=== PATIENT | female | born 1980 | race Caucasian/White ===

== ENCOUNTER 2017-10-23 19:09 | Emergency (ER) | payer OTHER ==
[~2017-10-23] VITALS: Ht 162.6 cm; Wt 59.0 kg
[~2017-10-23 19:09] MED LIST: BENZ100A PO; CHLO25 PO; CYCL10 PO; HYDHCL25 PO; LATUDA40 MG PO; Mobic15 MG PO; Mupirocin22 GM TP; Omeprazole20 M1; RISP1 PO; Zithromax250 MG PO; Zofran Odt8 MG SL
[2017-10-23] MEDS ORDERED: Vistaril25 MG PO (19:39)
[2018-04-09] MEDS ORDERED: GABA800 PO (16:02)
[2018-04-09] MEDS ORDERED: HYDPAM50 PO (16:02)
[2018-04-09] MEDS ORDERED: OMEPRAZOLE MAGN20 MG PO (16:03)
[2018-04-11] MEDS ORDERED: CHLO10 PO (08:37)
[2018-04-11] MEDS ORDERED: METO25 PO (08:38)
[2018-04-11] MEDS ORDERED: NICO21TP TD (08:39)
[2018-04-11] MEDS ORDERED: ONDA4ODT MM (08:42)
[2018-07-04] MEDS ORDERED: Naltrexone HCl50 MG PO (23:00)
[2018-07-04] MEDS ORDERED: HYDPAM50 PO (23:01)
[2018-07-04] MEDS ORDERED: OMEPRAZOLE MAGN20 MG PO (23:01)
[2018-08-19] MEDS ORDERED: K-Dur20 MEQ PO (10:31)
[2018-08-19] MEDS ORDERED: Hydroxyzine HCl50 MG PO (10:33)
== END 2017-10-23 20:01 | disposition home or self-care (01) ==
LOC: ER 19:09
DX: L23.7 Allergic contact dermatitis due to plants, except food (principal); Z88.0 Allergy status to penicillin; Z88.2 Allergy status to sulfonamides; Z88.5 Allergy status to narcotic agent; F17.210 Nicotine dependence, cigarettes, uncomplicated
CPT/HCPCS: 96372; 99283; J2920; J3301

== ENCOUNTER 2017-10-26 03:00 | Emergency (ER) | payer OTHER ==
[~2017-10-26] VITALS: Ht 162.6 cm; Wt 59.0 kg
[~2017-10-26 03:00] MED LIST changes: +Vistaril25 MG PO
[2017-10-26] MEDS ORDERED: PRED20 PO (06:15)
[2017-10-26] MEDS ORDERED: HYDHCL25 PO (06:15)
[2018-04-09] MEDS ORDERED: HYDPAM50 PO (16:02)
[2018-04-09] MEDS ORDERED: GABA800 PO (16:02)
[2018-04-09] MEDS ORDERED: OMEPRAZOLE MAGN20 MG PO (16:03)
[2018-04-11] MEDS ORDERED: CHLO10 PO (08:37)
[2018-04-11] MEDS ORDERED: METO25 PO (08:38)
[2018-04-11] MEDS ORDERED: NICO21TP TD (08:39)
[2018-04-11] MEDS ORDERED: ONDA4ODT MM (08:42)
[2018-07-04] MEDS ORDERED: Naltrexone HCl50 MG PO (23:00)
[2018-07-04] MEDS ORDERED: HYDPAM50 PO (23:01)
[2018-07-04] MEDS ORDERED: OMEPRAZOLE MAGN20 MG PO (23:01)
[2018-08-19] MEDS ORDERED: K-Dur20 MEQ PO (10:31)
[2018-08-19] MEDS ORDERED: Hydroxyzine HCl50 MG PO (10:33)
== END 2017-10-26 06:37 | disposition home or self-care (01) ==
LOC: ER 03:00
DX: L23.7 Allergic contact dermatitis due to plants, except food (principal); F17.210 Nicotine dependence, cigarettes, uncomplicated; Z90.49 Acquired absence of other specified parts of digestive tract
CPT/HCPCS: 99283

== ENCOUNTER 2017-11-17 12:01 | Emergency (ER) | payer OTHER ==
[~2017-11-17] VITALS: Ht 162.6 cm; Wt 63.5 kg
[~2017-11-17 12:01] MED LIST changes: +PRED20 PO
[2017-11-17 13:50] LABS: BASOPHILS ABSOLUTE AUTO 0.03 K/mm3 (0.00-0.23); BASOPHILS PERCENT AUTO 0 % (0-2); EOSINOPHILS ABSOLUTE AUTO 0.14 K/mm3 (0.00-0.68); EOSINOPHILS PERCENT AUTO 1 % (0-6); Hematocrit 36.7 % (33.0-51.0); Hemoglobin 12.6 g/dL (11.5-16.0); IMMATURE GRAN ABSOLUTE AUTO 0.02 K/mm3 (0.00-0.10); IMMATURE GRAN PERCENT AUTO 0 % (0-1); LYMPHOCYTES ABSOLUTE AUTO 1.81 K/mm3 (0.84-5.20); LYMPHOCYTES PERCENT AUTO 17 % (21-46); MONOCYTES PERCENT AUTO 11 % (4-13); Mean Corpuscular HGB 31.8 pg (26.0-34.0); Mean Corpuscular HGB Conc 34.3 g/dL (31.5-36.5); Mean Corpuscular Volume 93 fL (80-100); Mean Platelet Volume 8.7 fL (9.1-12.4); NEUTROPHILS ABSOLUTE AUTO 7.41 K/mm3 (1.96-9.15); NEUTROPHILS PERCENT AUTO 71 % (41-73); Platelet Count 287 K/mm3 (150-400); RDW Coefficient Variation 14.4 % (11.7-14.2); RDW Standard Deviation 48.6 fL (35.1-46.3); Red Blood Cell Count 3.96 M/mm3 (3.80-5.20); White Blood Cell Count 10.51 K/mm3 (4.00-11.30)
[2017-11-17 13:51] LABS: Source, Urine Clean Catch
[2017-11-17 14:00] LABS: Alanine Aminotransfer (ALT/SGP 107 U/L (12-78); Albumin, Blood 3.4 g/dL (3.4-5.0); Albumin/Globulin Ratio 0.9 (0.8-1.8); Alk Phos 78 U/L (50-136); Anion Gap 14 mmol/L (6-16); Aspartate Aminotrans (AST/SGOT 147 U/L (12-37); Bilirubin, Total 0.6 mg/dL (0.1-1.0); Blood Urea Nitrogen 16 mg/dL (8-24); CO2, Blood 20 mmol/L (21-32); Calcium, Blood 8.5 mg/dL (8.5-10.1); Chloride, Blood 109 mmol/L (98-108); Creatinine, Blood 0.67 mg/dL (0.40-1.00); Ethanol (Alcohol), Blood, Med 140 mg/dL; Globulin, Blood 3.6 g/dL (2.2-4.0); Glomerular Filtration Rate >60 (60-); Glucose, Blood 94 mg/dL (70-99); Potassium, Blood 3.2 mmol/L (3.5-5.5); Sodium, Blood 143 mmol/L (136-145)
[2017-11-17 14:12] LABS: Appearance, Urine Clear (Clear); Bilirubin, Urine Neg (Neg); Blood, Urine 4+ (Neg); Color, Urine Yellow (P-Yellow); Glucose Qualitative, Urine Neg (Neg); Ketones, Urine 3+ (Neg); Leukocyte Esterase, Urine Neg (Neg); Nitrite, Urine Neg (Neg); Protein, Urine 2+ (Neg); Specific Gravity, Urine 1.025 (1.003-1.022); Urobilinogen, Urine 1+ (Normal)
[2017-11-17 14:22] LABS: Bacteria Mod /hpf; Squamous Epithelial Cells Mod /hpf (Few); White Blood Cells, Urine 0-2 /hpf (0-5)
[2017-11-17 14:23] LABS: Amorphous Light (0-Heavy)
[2017-11-17 14:24] LABS: U Amphetamine Screen DETECTED; U Barbituate Screen Not Detected; U Benzodiazapine Screen Not Detected; U Buprenorphine Screen Not Detected; U Cannabinoids Screen DETECTED; U Cocaine Screen Not Detected; U Methadone Screen Not Detected; U Methamphetamine Screen DETECTED; U Opiates Screen Not Detected; U Oxycodone Screen Not Detected; U Phencyclidine Screen Not Detected; U Propoxyphene Screen Not Detected; Yeast/Fungi Urine Few /hpf
[2018-04-09] MEDS ORDERED: HYDPAM50 PO (16:02)
[2018-04-09] MEDS ORDERED: GABA800 PO (16:02)
[2018-04-09] MEDS ORDERED: OMEPRAZOLE MAGN20 MG PO (16:03)
[2018-04-11] MEDS ORDERED: CHLO10 PO (08:37)
[2018-04-11] MEDS ORDERED: METO25 PO (08:38)
[2018-04-11] MEDS ORDERED: NICO21TP TD (08:39)
[2018-04-11] MEDS ORDERED: ONDA4ODT MM (08:42)
[2018-07-04] MEDS ORDERED: Naltrexone HCl50 MG PO (23:00)
[2018-07-04] MEDS ORDERED: OMEPRAZOLE MAGN20 MG PO (23:01)
[2018-07-04] MEDS ORDERED: HYDPAM50 PO (23:01)
[2018-08-19] MEDS ORDERED: K-Dur20 MEQ PO (10:31)
[2018-08-19] MEDS ORDERED: Hydroxyzine HCl50 MG PO (10:33)
== END 2017-11-17 14:41 | disposition home or self-care (01) ==
LOC: ER 12:01
PROVIDERS: Emergency Medicine; Internal Medicine
DX: K29.20 Alcoholic gastritis without bleeding (principal); F10.10 Alcohol abuse, uncomplicated; F15.10 Other stimulant abuse, uncomplicated; Y90.6 Blood alcohol level of 120-199 mg/100 ml; F17.210 Nicotine dependence, cigarettes, uncomplicated; Z88.0 Allergy status to penicillin; Z88.2 Allergy status to sulfonamides; Z88.5 Allergy status to narcotic agent
CPT/HCPCS: 71046; 80053; 81001; 85025; 93005; 93010; 99283; G0480

== ENCOUNTER 2018-08-26 07:47 | Day surgery (SDC) | payer OTHER ==
[~2018-08-26] VITALS: Ht 165.1 cm; Wt 81.8 kg
[~2018-08-26 07:47] MED LIST changes: +CHLO10 PO; +GABA800 PO; +HYDPAM50 PO; +Hydroxyzine HCl50 MG PO; +K-Dur20 MEQ PO; +METO25 PO; +NICO21TP TD; +Naltrexone HCl50 MG PO; +OMEPRAZOLE MAGN20 MG PO; +ONDA4ODT MM
== END 2018-08-26 10:00 | disposition home or self-care (01) ==
LOC: ORSCSDS 07:47
DX: K25.9 Gastric ulcer, unspecified as acute or chronic, without hemorrhage or perforation (principal); Z53.9 Procedure and treatment not carried out, unspecified reason
CPT/HCPCS: J2001; J7120

== ENCOUNTER 2018-08-30 13:42 | Emergency (ER) | payer OTHER ==
[~2018-08-30] VITALS: Ht 165.1 cm; Wt 77.1 kg
[2018-08-30] MEDS ORDERED: IBUP600 PO (15:16)
[2018-08-30] MEDS ORDERED: CEPH500 PO (15:16)
== END 2018-08-30 15:24 | disposition home or self-care (01) ==
LOC: ER 13:42
DX: S61.313A Laceration without foreign body of left middle finger with damage to nail, initial encounter (principal); F17.210 Nicotine dependence, cigarettes, uncomplicated; Z91.013 Allergy to seafood; Z88.0 Allergy status to penicillin; Z88.2 Allergy status to sulfonamides; Z88.5 Allergy status to narcotic agent; Z79.899 Other long term (current) drug therapy; W26.8XXA Contact with other sharp object(s), not elsewhere classified, initial encounter
CPT/HCPCS: 11730; 73140; 99283-25

== ENCOUNTER 2018-09-18 10:25 | Emergency (ER) | payer OTHER ==
[~2018-09-18] VITALS: Ht 162.6 cm; Wt 81.7 kg
[~2018-09-18 10:25] MED LIST changes: +CEPH500 PO; +IBUP600 PO
== END 2018-09-18 10:53 | disposition home or self-care (01) ==
LOC: ER 10:25
DX: S61.213D Laceration without foreign body of left middle finger without damage to nail, subsequent encounter (principal); Z88.0 Allergy status to penicillin; Z88.2 Allergy status to sulfonamides; Z88.5 Allergy status to narcotic agent; Z79.899 Other long term (current) drug therapy; F17.210 Nicotine dependence, cigarettes, uncomplicated

== ENCOUNTER 2018-10-23 13:35 | Emergency (ER) | payer OTHER ==
[~2018-10-23] VITALS: Ht 162.6 cm; Wt 82.1 kg
[2018-10-23] MEDS ORDERED: CHLO25 PO (13:57)
[2018-10-23] MEDS ORDERED: OMEPRAZOLE MAGN20 MG (13:57)
[2018-10-23] MEDS ORDERED: OMEPRAZOLE MAGN20 MG PO (13:57)
[2018-10-23] MEDS ORDERED: METO25ER PO (13:58)
[2018-10-23] MEDS ORDERED: ALBU90OI INH (13:58)
[2018-10-23 14:59] LABS: Source, Urine Clean Catch
[2018-10-23 15:13] LABS: Appearance, Urine Clear (Clear); Bilirubin, Urine Neg (Neg); Blood, Urine Neg (Neg); Color, Urine Yellow (P-Yellow); Glucose Qualitative, Urine Neg (Neg); Ketones, Urine Neg (Neg); Leukocyte Esterase, Urine Neg (Neg); Nitrite, Urine Neg (Neg); Protein, Urine Neg (Neg); Specific Gravity, Urine 1.005 (1.003-1.022); Urobilinogen, Urine NORM (Normal)
[2018-10-23 15:57] LABS: BASOPHILS ABSOLUTE AUTO 0.03 K/mm3 (0.00-0.23); BASOPHILS PERCENT AUTO 0 % (0-2); EOSINOPHILS ABSOLUTE AUTO 0.21 K/mm3 (0.00-0.68); EOSINOPHILS PERCENT AUTO 2 % (0-6); Hematocrit 40.8 % (33.0-51.0); Hemoglobin 13.6 g/dL (11.5-16.0); IMMATURE GRAN ABSOLUTE AUTO 0.03 K/mm3 (0.00-0.10); IMMATURE GRAN PERCENT AUTO 0 % (0-1); LYMPHOCYTES ABSOLUTE AUTO 2.79 K/mm3 (0.84-5.20); LYMPHOCYTES PERCENT AUTO 30 % (21-46); MONOCYTES ABSOLUTE AUTO 1.02 K/mm3 (0.16-1.47); MONOCYTES PERCENT AUTO 11 % (4-13); Mean Corpuscular HGB 29.6 pg (26.0-34.0); Mean Corpuscular HGB Conc 33.3 g/dL (31.5-36.5); Mean Corpuscular Volume 89 fL (80-100); Mean Platelet Volume 9.1 fL (9.1-12.4); NEUTROPHILS ABSOLUTE AUTO 5.33 K/mm3 (1.96-9.15); NEUTROPHILS PERCENT AUTO 57 % (41-73); Platelet Count 322 K/mm3 (150-400); RDW Coefficient Variation 14.6 % (11.7-14.2); RDW Standard Deviation 46.5 fL (35.1-46.3); White Blood Cell Count 9.41 K/mm3 (4.00-11.30)
[2018-10-23 16:16] LABS: Troponin I <0.015 ng/mL (0.000-0.040)
[2018-10-23 16:17] LABS: Alanine Aminotransfer (ALT/SGP 57 U/L (12-78); Albumin, Blood 3.3 g/dL (3.4-5.0); Albumin/Globulin Ratio 0.8 (0.8-1.8); Alk Phos 78 U/L (50-136); Anion Gap 8 mmol/L (6-16); Aspartate Aminotrans (AST/SGOT 59 U/L (12-37); Bilirubin, Total 0.4 mg/dL (0.1-1.0); Blood Urea Nitrogen 16 mg/dL (8-24); Bun/Creatinine Ratio 20.1 (12.0-20.0); CO2, Blood 24 mmol/L (21-32); Calcium, Blood 9.1 mg/dL (8.5-10.1); Chloride, Blood 104 mmol/L (98-108); Globulin, Blood 4.1 g/dL (2.2-4.0); Glomerular Filtration Rate >60 (60-); Glucose, Blood 95 mg/dL (70-99); Potassium, Blood 4.8 mmol/L (3.5-5.5); Sodium, Blood 136 mmol/L (136-145); Total Protein, Blood 7.4 g/dL (6.4-8.2)
== END 2018-10-23 16:53 | disposition home or self-care (01) ==
LOC: ER 13:35
PROVIDERS: Emergency Medicine
DX: R07.9 Chest pain, unspecified (principal); F17.210 Nicotine dependence, cigarettes, uncomplicated; Z88.0 Allergy status to penicillin; Z88.2 Allergy status to sulfonamides; Z91.013 Allergy to seafood; Z88.5 Allergy status to narcotic agent; Z79.899 Other long term (current) drug therapy
CPT/HCPCS: 36415; 71046; 80053; 81003; 81025; 83690; 84484; 85025; 85379; 93005; 93010; 99285-25

== ENCOUNTER 2018-11-06 21:34 | Emergency (ER) | payer OTHER ==
[~2018-11-06] VITALS: Ht 162.6 cm; Wt 86.2 kg
[~2018-11-06 21:34] MED LIST changes: +ALBU90OI INH; +METO25ER PO; +OMEPRAZOLE MAGN20 MG
[2018-11-06] MEDS ORDERED: Vistaril50 MG PO (22:30)
== END 2018-11-06 22:45 | disposition home or self-care (01) ==
LOC: ER 21:34
DX: R20.8 Other disturbances of skin sensation (principal); F10.20 Alcohol dependence, uncomplicated; F17.210 Nicotine dependence, cigarettes, uncomplicated; Z91.013 Allergy to seafood; Z88.0 Allergy status to penicillin; Z88.2 Allergy status to sulfonamides; Z88.5 Allergy status to narcotic agent; Z79.899 Other long term (current) drug therapy
CPT/HCPCS: 99284

== ENCOUNTER 2018-12-24 00:28 | Day surgery (SDC) | payer OTHER ==
[~2018-12-24 00:28] MED LIST changes: +Vistaril50 MG PO
[2018-12-24] MEDS ORDERED: GABA800 (14:48)
[2018-12-24] MEDS ORDERED: PRAZ2 (14:48)
[2018-12-24] MEDS ORDERED: Prozac20 MG (14:48)
[2018-12-24] MEDS ORDERED: PROP10 (14:49)
== END 2018-12-24 11:05 | disposition home or self-care (01) ==
LOC: ATC 00:28
DX: K62.3 Rectal prolapse (principal); F41.9 Anxiety disorder, unspecified; F17.210 Nicotine dependence, cigarettes, uncomplicated; Z79.899 Other long term (current) drug therapy; Z88.1 Allergy status to other antibiotic agents; Z88.0 Allergy status to penicillin; Z91.013 Allergy to seafood; Z88.5 Allergy status to narcotic agent; Z88.2 Allergy status to sulfonamides
CPT/HCPCS: 99211; C1751

== ENCOUNTER 2019-06-08 10:44 | Emergency (ER) | payer OTHER ==
[~2019-06-08] VITALS: Ht 162.6 cm; Wt 77.1 kg
[~2019-06-08 10:44] MED LIST changes: +GABA800; +PRAZ2; +PROP10; +Prozac20 MG
[2019-06-08] MEDS ORDERED: Monodox100 MG PO (11:14)
== END 2019-06-08 11:24 | disposition home or self-care (01) ==
LOC: ER 10:44
DX: N61.1 Abscess of the breast and nipple (principal); F17.210 Nicotine dependence, cigarettes, uncomplicated; Z91.018 Allergy to other foods; Z88.0 Allergy status to penicillin; Z88.5 Allergy status to narcotic agent; Z79.899 Other long term (current) drug therapy
CPT/HCPCS: 99283

== ENCOUNTER 2020-02-03 01:06 | Emergency (ER) | payer OTHER ==
[~2020-02-03] VITALS: Ht 162.6 cm; Wt 72.6 kg
[~2020-02-03 01:06] MED LIST changes: +Monodox100 MG PO
[2020-02-03 01:44] LABS: BASOPHILS ABSOLUTE AUTO 0.04 K/mm3 (0.00-0.23); BASOPHILS PERCENT AUTO 0 % (0-2); EOSINOPHILS ABSOLUTE AUTO 0.06 K/mm3 (0.00-0.68); EOSINOPHILS PERCENT AUTO 1 % (0-6); Hematocrit 42.7 % (33.0-51.0); Hemoglobin 13.7 g/dL (11.5-16.0); IMMATURE GRAN ABSOLUTE AUTO 0.03 K/mm3 (0.00-0.10); IMMATURE GRAN PERCENT AUTO 0 % (0-1); LYMPHOCYTES ABSOLUTE AUTO 1.04 K/mm3 (0.84-5.20); LYMPHOCYTES PERCENT AUTO 11 % (21-46); MONOCYTES ABSOLUTE AUTO 0.51 K/mm3 (0.16-1.47); MONOCYTES PERCENT AUTO 6 % (4-13); Mean Corpuscular HGB 28.7 pg (26.0-34.0); Mean Corpuscular HGB Conc 32.1 g/dL (31.5-36.5); Mean Corpuscular Volume 89 fL (80-100); Mean Platelet Volume 8.9 fL (9.1-12.4); NEUTROPHILS PERCENT AUTO 82 % (41-73); Platelet Count 330 K/mm3 (150-400); RDW Coefficient Variation 13.8 % (11.7-14.2); RDW Standard Deviation 45.1 fL (35.1-46.3); Red Blood Cell Count 4.78 M/mm3 (3.80-5.20); White Blood Cell Count 9.28 K/mm3 (4.00-11.30)
[2020-02-03 01:59] LABS: Alanine Aminotransfer (ALT/SGP 48 U/L (12-78); Albumin, Blood 3.5 g/dL (3.4-5.0); Albumin/Globulin Ratio 0.8 (0.8-1.8); Alk Phos 107 U/L (50-136); Anion Gap 9 mmol/L (6-16); Aspartate Aminotrans (AST/SGOT 45 U/L (12-37); Bilirubin, Total 0.1 mg/dL (0.1-1.0); Blood Urea Nitrogen 11 mg/dL (8-24); Bun/Creatinine Ratio 14.6 (12.0-20.0); CO2, Blood 25 mmol/L (21-32); Calcium, Blood 8.3 mg/dL (8.5-10.1); Chloride, Blood 106 mmol/L (98-108); Creatinine, Blood 0.75 mg/dL (0.40-1.00); Ethanol (Alcohol), Blood, Med 76 mg/dL; Globulin, Blood 4.3 g/dL (2.2-4.0); Glomerular Filtration Rate >60 (60-); Glucose, Blood 99 mg/dL (70-99); Potassium, Blood 3.4 mmol/L (3.5-5.5); Sodium, Blood 140 mmol/L (136-145); Total Protein, Blood 7.8 g/dL (6.4-8.2)
[2020-02-03 03:46] LABS: Source, Urine Clean Catch
[2020-02-03 03:47] LABS: Bilirubin, Urine Neg (Neg); Blood, Urine 3+ (Neg); Glucose Qualitative, Urine Neg (Neg); Ketones, Urine Neg (Neg); Leukocyte Esterase, Urine Neg (Neg); Nitrite, Urine Neg (Neg); Protein, Urine 3+ (Neg); Specific Gravity, Urine 1.025 (1.003-1.022); Urobilinogen, Urine NORM (Normal)
[2020-02-03 03:52] LABS: Appearance, Urine Clear (Clear); Color, Urine Yellow (P-Yellow)
[2020-02-03 03:54] LABS: Amorphous Light (0-Heavy); Bacteria Mod /hpf; Red Blood Cells, Urine 0-2 /hpf (0-2); Squamous Epithelial Cells Few /hpf (Few)
[2020-02-03 03:55] LABS: Hyaline Casts 0-2 /lpf (0-2); Mucus Light (0-Heavy)
== END 2020-02-03 04:40 | disposition home or self-care (01) ==
LOC: ER 01:06
PROVIDERS: Emergency Medicine
DX: T40.1X1A Poisoning by heroin, accidental (unintentional), initial encounter (principal); Z88.0 Allergy status to penicillin; Z88.2 Allergy status to sulfonamides; Z88.5 Allergy status to narcotic agent; Z91.013 Allergy to seafood; F17.210 Nicotine dependence, cigarettes, uncomplicated
CPT/HCPCS: 36415; 80053; 81001; 83690; 85025; 87086; 96361; 96374; 99284-25; G0480; J2405; J7030; P9612

== ENCOUNTER 2020-06-16 16:45 | Emergency (ER) | payer OTHER ==
[~2020-06-16] VITALS: Ht 162.6 cm; Wt 72.6 kg
[2020-06-16 17:17] LABS: BASOPHILS ABSOLUTE AUTO 0.04 K/mm3 (0.00-0.23); BASOPHILS PERCENT AUTO 0 % (0-2); EOSINOPHILS ABSOLUTE AUTO 0.16 K/mm3 (0.00-0.68); EOSINOPHILS PERCENT AUTO 2 % (0-6); Hematocrit 46.7 % (33.0-51.0); Hemoglobin 15.3 g/dL (11.5-16.0); IMMATURE GRAN ABSOLUTE AUTO 0.02 K/mm3 (0.00-0.10); IMMATURE GRAN PERCENT AUTO 0 % (0-1); LYMPHOCYTES PERCENT AUTO 36 % (21-46); MONOCYTES PERCENT AUTO 6 % (4-13); Mean Corpuscular HGB Conc 32.8 g/dL (31.5-36.5); Mean Corpuscular Volume 88 fL (80-100); Mean Platelet Volume 8.9 fL (9.1-12.4); NEUTROPHILS ABSOLUTE AUTO 6.08 K/mm3 (1.96-9.15); NEUTROPHILS PERCENT AUTO 55 % (41-73); NRBC ABSOLUTE 0.04 K/mm3 (0.00-0.02); NRBC Auto 0.4 /100 WBC (0.0-0.2); Platelet Count 448 K/mm3 (150-400); RDW Coefficient Variation 13.8 % (11.7-14.2); Red Blood Cell Count 5.28 M/mm3 (3.80-5.20)
[2020-06-16 18:07] LABS: Anion Gap 9 mmol/L (6-16); CO2, Blood 24 mmol/L (21-32); Chloride, Blood 109 mmol/L (98-108); Sodium, Blood 142 mmol/L (136-145)
[2020-06-16 18:30] LABS: Alanine Aminotransfer (ALT/SGP 43 U/L (12-78); Albumin, Blood 3.6 g/dL (3.4-5.0); Albumin/Globulin Ratio 0.8 (0.8-1.8); Alk Phos 92 U/L (50-136); Aspartate Aminotrans (AST/SGOT 50 U/L (12-37); Bilirubin, Total 0.2 mg/dL (0.1-1.0); Blood Urea Nitrogen 8 mg/dL (8-24); Calcium, Blood 9.2 mg/dL (8.5-10.1); Globulin, Blood 4.7 g/dL (2.2-4.0); Glucose, Blood 108 mg/dL (70-99); Total Protein, Blood 8.3 g/dL (6.4-8.2)
[2020-06-16 18:31] LABS: Bun/Creatinine Ratio 12.7 (12.0-20.0); Creatinine, Blood 0.63 mg/dL (0.40-1.00); Glomerular Filtration Rate >60 (60-)
[2020-06-16] MEDS ORDERED: Vibramycin100 MG PO (19:02)
== END 2020-06-16 19:20 | disposition home or self-care (01) ==
LOC: ER 16:45
PROVIDERS: Physician Assistant
DX: L02.211 Cutaneous abscess of abdominal wall (principal); F17.210 Nicotine dependence, cigarettes, uncomplicated; Z91.013 Allergy to seafood; Z88.0 Allergy status to penicillin; Z88.5 Allergy status to narcotic agent; Z88.2 Allergy status to sulfonamides
CPT/HCPCS: 10060; 80053; 85025; 99283-25

== ENCOUNTER 2021-02-17 17:31 | Emergency (ER) | payer OTHER ==
[~2021-02-17] VITALS: Ht 162.6 cm; Wt 90.7 kg
[~2021-02-17 17:31] MED LIST changes: +Vibramycin100 MG PO
[2021-02-17] MEDS ORDERED: Norco 5-325 Ta1 EACH PO (18:52)
== END 2021-02-17 19:09 | disposition home or self-care (01) ==
LOC: ER 17:31
DX: S82.64XA Nondisplaced fracture of lateral malleolus of right fibula, initial encounter for closed fracture (principal); K21.9 Gastro-esophageal reflux disease without esophagitis; F17.210 Nicotine dependence, cigarettes, uncomplicated; Z88.0 Allergy status to penicillin; Z88.2 Allergy status to sulfonamides; Z88.5 Allergy status to narcotic agent; Z91.013 Allergy to seafood; W01.0XXA Fall on same level from slipping, tripping and stumbling without subsequent striking against object, initial encounter
CPT/HCPCS: 29515; 73610; 99283-25

== ENCOUNTER → 2022-08-15 | Outpatient (CLI) | payer OTHER ==
[~2022-08-15] MED LIST changes: +BUPRENORPHINE HC2 MG SL; +Norco 5-325 Ta1 EACH PO; +PRENATAL TABLE1 EAC2 PO
[2022-08-15 15:14] LABS: Source, Urine Clean Catch
[2022-08-15 18:14] LABS: U Amphetamine Screen Not Detected; U Barbituate Screen Not Detected; U Benzodiazapine Screen DETECTED; U Buprenorphine Screen DETECTED; U Cannabinoids Screen Not Detected; U Cocaine Screen Not Detected; U Methadone Screen Not Detected; U Methamphetamine Screen Not Detected; U Opiates Screen Not Detected; U Oxycodone Screen Not Detected; U Phencyclidine Screen Not Detected; U Propoxyphene Screen Not Detected
[2022-08-15 18:26] LABS: Bacteria Many /hpf; Squamous Epithelial Cells Mod /hpf (Few)
== END | disposition home or self-care (01) ==
LOC: LAB 15:10 → LAB SHORT 15:10
PROVIDERS: Obstetrics & Gynecology
DX: Z34.81 Encounter for supervision of other normal pregnancy, first trimester (principal)
CPT/HCPCS: 81015; 87086

== ENCOUNTER → 2022-09-20 | Outpatient (CLI) | payer OTHER | END | disposition home or self-care (01) | LOC: LAB SHORT 12:04 | PROVIDERS: Internal Medicine Hematology & Oncology | DX: E53.8 Deficiency of other specified B group vitamins (principal); D50.0 Iron deficiency anemia secondary to blood loss (chronic) | CPT/HCPCS: 82607; 82728; 82746; 83540; 83550 ==

== ENCOUNTER → 2022-09-25 | Outpatient (CLI) | payer OTHER | END | disposition home or self-care (01) | LOC: LAB 16:43 → LAB SHORT 16:43 | DX: O09.893 Supervision of other high risk pregnancies, third trimester (principal) | CPT/HCPCS: 87081; 87150 ==

== ENCOUNTER 2022-10-22 05:07 | Inpatient (IN) | payer OTHER ==
[~2022-10-22] VITALS: Ht 162.6 cm; Wt 73.0 kg
[2022-10-22] MEDS ORDERED: FERSU300 PO (05:36)
[2022-10-22] MEDS ORDERED: OMEP20ER PO (05:37)
[2022-10-22] MEDS ORDERED: LAMO100 PO (05:37)
[2022-10-22] MEDS ORDERED: ONDA4ODT MM (05:38)
[2022-10-22] MEDS ORDERED: FAMO20 PO (05:38)
[2022-10-22 05:45] LABS: BASOPHILS ABSOLUTE AUTO 0.03 K/mm3 (0.00-0.23); BASOPHILS PERCENT AUTO 0 % (0-2); EOSINOPHILS ABSOLUTE AUTO 0.32 K/mm3 (0.00-0.68); EOSINOPHILS PERCENT AUTO 3 % (0-6); Hematocrit 34.1 % (33.0-51.0); Hemoglobin 11.7 g/dL (11.5-16.0); IMMATURE GRAN ABSOLUTE AUTO 0.07 K/mm3 (0.00-0.10); IMMATURE GRAN PERCENT AUTO 1 % (0-1); LYMPHOCYTES ABSOLUTE AUTO 1.84 K/mm3 (0.84-5.20); LYMPHOCYTES PERCENT AUTO 17 % (21-46); MONOCYTES PERCENT AUTO 7 % (4-13); Mean Corpuscular HGB Conc 34.3 g/dL (31.5-36.5); Mean Corpuscular Volume 87 fL (80-100); Mean Platelet Volume 9.4 fL (9.1-12.4); NEUTROPHILS ABSOLUTE AUTO 7.69 K/mm3 (1.96-9.15); NEUTROPHILS PERCENT AUTO 72 % (41-73); Platelet Count 267 K/mm3 (150-400); RDW Coefficient Variation 13.4 % (11.7-14.2); RDW Standard Deviation 42.5 fL (35.1-46.3); White Blood Cell Count 10.75 K/mm3 (4.00-11.30)
[2022-10-22 06:21] LABS: U Amphetamine Screen Not Detected; U Barbituate Screen Not Detected; U Benzodiazapine Screen Not Detected; U Buprenorphine Screen DETECTED; U Cannabinoids Screen Not Detected; U Cocaine Screen Not Detected; U Methadone Screen Not Detected; U Methamphetamine Screen Not Detected; U Opiates Screen Not Detected; U Oxycodone Screen Not Detected; U Phencyclidine Screen Not Detected; U Propoxyphene Screen Not Detected
--- NOTE | 2022-10-22 13:59 | NUR ---
10/22/22 1359 YUMIKO VILLA A OF VIABLE BABY BOY AT 0808. CORD BLOOD GIVEN TO RACHEL BOLES. NO CORD FOR GASSES. BABY TAKEN TO NURSERY FOR CPAP SUPPORT.
--- NOTE | 2022-10-23 06:55 | NUR ---
PT REQUESTS TO GO SMOKE, NICOTINE PATCH REMOVED AND IV DC'D
--- NOTE | 2022-10-23 08:12 | NUR ---
pt reports pumped once last night and should do it again, encouraged to pump every 3 hours so baby keeps some of her meds in his system, without the meds he will with draw from the meds. mom is feeding formula per her choice
[2022-10-23 10:58] LABS: BASOPHILS ABSOLUTE AUTO 0.04 K/mm3 (0.00-0.23); BASOPHILS PERCENT AUTO 0 % (0-2); EOSINOPHILS ABSOLUTE AUTO 0.18 K/mm3 (0.00-0.68); EOSINOPHILS PERCENT AUTO 2 % (0-6); Hematocrit 35.5 % (33.0-51.0); Hemoglobin 11.6 g/dL (11.5-16.0); IMMATURE GRAN ABSOLUTE AUTO 0.05 K/mm3 (0.00-0.10); IMMATURE GRAN PERCENT AUTO 0 % (0-1); LYMPHOCYTES PERCENT AUTO 17 % (21-46); MONOCYTES ABSOLUTE AUTO 0.99 K/mm3 (0.16-1.47); MONOCYTES PERCENT AUTO 9 % (4-13); Mean Corpuscular HGB 30.7 pg (26.0-34.0); Mean Corpuscular HGB Conc 32.7 g/dL (31.5-36.5); Mean Platelet Volume 11.9 fL (9.1-12.4); NEUTROPHILS ABSOLUTE AUTO 8.44 K/mm3 (1.96-9.15); NEUTROPHILS PERCENT AUTO 72 % (41-73); Platelet Count 120 K/mm3 (150-400); RDW Coefficient Variation 13.7 % (11.7-14.2); Red Blood Cell Count 3.78 M/mm3 (3.80-5.20)
[2022-10-23 10:59] LABS: Mean Corpuscular Volume 94 fL (80-100)
--- NOTE | 2022-10-24 09:04 | NUR ---
williams cedeno cnm called back, he consulted with [facility] for pt to start alesia elequist blood thinner medication when discharged. it is ok to take with .
[2022-10-24] MEDS ORDERED: IBUP800 PO (09:09)
[2022-10-24] MEDS ORDERED: OXAYDO5 M1 PO (09:10)
[2022-10-24] MEDS ORDERED: ELIQUIS2.5 MG PO (09:13)
--- NOTE | 2022-10-24 13:38 | NUR ---
PT OUT SMOKING, WHEN GETS BACK WILL DO PAT PAPERS, AND DC TEACHING, APPT MADE, HAVE 2PM MEDS READY TO GIVE, PT HAS HER MEDS IN THE ROOM FOR [facility] SO SHE IS READY TO BE DISCHARGED
--- NOTE | 2022-10-24 14:10 | NUR ---
DC TO BOARDER STATUS, DENIES ANY QUESTIONS, DOING BABY CARE, PUMPING AND FEEDING BABY. HAS COPY OF DC INSTRUCTIONS, HAS PPFU ON SATURDAY WITH ALAN AT 1000, [facility] IS GOING TO BE BRINGING HER SUPPLY OF MEDS EVERY COUPLE DAYS WHILE SHE IS HERE UNTIL SHE IS ABLE TO GO BACK TO [place] WITH BABY
== END 2022-10-24 14:10 | disposition home or self-care (01) | DRG 784 ==
LOC: BC 05:07
PROVIDERS: ADMIT Obstetrics & Gynecology
PROC: 10D00Z1 Extraction of Products of Conception, Low, Open Approach (ICD-10-PCS; principal; 2022-10-22 07:30)
PROC: 0UT70ZZ Resection of Bilateral Fallopian Tubes, Open Approach (ICD-10-PCS; 2022-10-22 07:30)
DX: O34.219 Maternal care for unspecified type scar from previous cesarean delivery (principal); F11.20 Opioid dependence, uncomplicated; O99.324 Drug use complicating childbirth; O99.334 Smoking (tobacco) complicating childbirth; F17.210 Nicotine dependence, cigarettes, uncomplicated; O99.344 Other mental disorders complicating childbirth; F41.8 Other specified anxiety disorders; K21.9 Gastro-esophageal reflux disease without esophagitis; O99.62 Diseases of the digestive system complicating childbirth; O99.02 Anemia complicating childbirth; D64.9 Anemia, unspecified; Z59.01 Sheltered homelessness; Z3A.39 39 weeks gestation of pregnancy; Z37.0 Single live birth; Z67.10 Type A blood, Rh positive; Z88.0 Allergy status to penicillin; Z88.2 Allergy status to sulfonamides; Z88.5 Allergy status to narcotic agent; Z98.890 Other specified postprocedural states; Z86.718 Personal history of other venous thrombosis and embolism
CPT/HCPCS: 36415; 85025; 86850; 86870; 86900; 86901; 88302; A9270; J1100; J1200; J1580; J1650; J1885; J2370; J2405; J2765; J3010; J7120

== ENCOUNTER 2023-04-06 11:13 | Emergency (ER) | payer OTHER ==
[~2023-04-06] VITALS: Ht 162.6 cm; Wt 66.2 kg
[~2023-04-06 11:13] MED LIST changes: +ELIQUIS2.5 MG PO; +FAMO20 PO; +FERSU300 PO; +IBUP800 PO; +LAMO100 PO; +OMEP20ER PO; +OXAYDO5 M1 PO
[2023-04-06 14:28] LABS: BASOPHILS ABSOLUTE AUTO 0.01 K/mm3 (0.00-0.23); BASOPHILS PERCENT AUTO 0 % (0-2); EOSINOPHILS ABSOLUTE AUTO 0.12 K/mm3 (0.00-0.68); EOSINOPHILS PERCENT AUTO 2 % (0-6); Hematocrit 40.7 % (33.0-51.0); Hemoglobin 13.8 g/dL (11.5-16.0); IMMATURE GRAN ABSOLUTE AUTO 0.01 K/mm3 (0.00-0.10); IMMATURE GRAN PERCENT AUTO 0 % (0-1); LYMPHOCYTES ABSOLUTE AUTO 1.86 K/mm3 (0.84-5.20); LYMPHOCYTES PERCENT AUTO 25 % (21-46); MONOCYTES ABSOLUTE AUTO 0.37 K/mm3 (0.16-1.47); MONOCYTES PERCENT AUTO 5 % (4-13); Mean Corpuscular HGB 29.7 pg (26.0-34.0); Mean Corpuscular HGB Conc 33.9 g/dL (31.5-36.5); Mean Corpuscular Volume 88 fL (80-100); NEUTROPHILS ABSOLUTE AUTO 5.22 K/mm3 (1.96-9.15); NEUTROPHILS PERCENT AUTO 69 % (41-73); Platelet Count 421 K/mm3 (150-400); RDW Coefficient Variation 13.3 % (11.7-14.2); RDW Standard Deviation 42.6 fL (35.1-46.3); Red Blood Cell Count 4.65 M/mm3 (3.80-5.20); White Blood Cell Count 7.59 K/mm3 (4.00-11.30)
[2023-04-06 14:54] LABS: Albumin, Blood 4.1 g/dL (3.4-5.0); Bilirubin, Total 0.5 mg/dL (0.1-1.0); Bun/Creatinine Ratio 17.7 (12.0-20.0); Calcium, Blood 9.2 mg/dL (8.5-10.1); Creatinine, Blood 0.45 mg/dL (0.40-1.00); Potassium, Blood 3.4 mmol/L (3.5-5.5); Total Protein, Blood 8.1 g/dL (6.4-8.2)
[2023-04-06 15:30] VITALS: BP 93/49
== END 2023-04-06 15:34 | disposition home or self-care (01) ==
LOC: ER 11:13
PROVIDERS: Emergency Medicine
DX: R10.9 Unspecified abdominal pain (principal); D17.1 Benign lipomatous neoplasm of skin and subcutaneous tissue of trunk; F17.210 Nicotine dependence, cigarettes, uncomplicated; Z88.0 Allergy status to penicillin; Z88.2 Allergy status to sulfonamides; Z91.013 Allergy to seafood; Z88.5 Allergy status to narcotic agent
CPT/HCPCS: 80053; 83690; 84703; 85025

== ENCOUNTER → 2023-04-09 | Outpatient (CLI) | payer OTHER ==
[2023-04-10 10:38] LABS: G. vaginalis (DNA Probe) Negative (NEGATIVE); T. vaginalis (DNA Probe) Negative (NEGATIVE)
[2023-04-10 10:40] LABS: Candida species (DNA Probe) Negative (NEGATIVE)
[2023-04-11 02:08] LABS: CHLAMYDIA TRACHOMATIS, NAA Negative (Negative)
== END | disposition home or self-care (01) ==
LOC: LAB 15:18 → LAB SHORT 15:18
PROVIDERS: Family Medicine
DX: Z11.3 Encounter for screening for infections with a predominantly sexual mode of transmission (principal); N89.8 Other specified noninflammatory disorders of vagina
CPT/HCPCS: 87480; 87491; 87510; 87591; 87660